=== PATIENT | male | born 1960 | race Caucasian/White ===

== ENCOUNTER 2016-10-25 16:06 | Emergency (ER) | payer OTHER ==
[~2016-10-25] VITALS: Ht 162.6 cm; Wt 76.2 kg
[~2016-10-25 16:06] MED LIST: ASPIR-LOW81 M1 PO; BEN50 PO; BENADRYL ALLERG25 M1 PO; DILTIAZEM HCL120 M2 PO; HYD25 PO; LOSARTAN POTASS50 M1 PO; MEDDP PO; PRE20 PO; SIMVASTATIN20 M1 PO
[2016-10-25 18:18] VITALS: BP 128/74
== END 2016-10-25 18:14 | disposition home or self-care (01) ==
LOC: ED 16:06
DX: L50.9 Urticaria, unspecified (principal); E03.9 Hypothyroidism, unspecified; E78.00 Pure hypercholesterolemia, unspecified
CPT/HCPCS: J1200; J2930

== ENCOUNTER 2016-10-26 03:28 | Emergency (ER) | payer OTHER ==
[2016-10-26 04:20] VITALS: BP 144/88
== END 2016-10-26 04:20 | disposition home or self-care (01) ==
LOC: ED 03:28
DX: L50.9 Urticaria, unspecified (principal); E78.00 Pure hypercholesterolemia, unspecified; I10 Essential (primary) hypertension; E07.9 Disorder of thyroid, unspecified; Z88.0 Allergy status to penicillin; Z91.018 Allergy to other foods
CPT/HCPCS: J0171; J7512; Q0163

== ENCOUNTER 2016-10-26 19:38 | Emergency (ER) | payer OTHER ==
[2016-10-26 22:39] VITALS: BP 114/65
== END 2016-10-26 22:39 | disposition home or self-care (01) ==
LOC: ED 19:38
DX: L50.9 Urticaria, unspecified (principal); I10 Essential (primary) hypertension; E78.00 Pure hypercholesterolemia, unspecified; Z91.010 Allergy to peanuts; Z91.018 Allergy to other foods; Z88.0 Allergy status to penicillin
CPT/HCPCS: J0171; J1200; J2930; J3490

== ENCOUNTER 2017-11-09 20:03 | Emergency (ER) | payer OTHER ==
[~2017-11-09] VITALS: Ht 157.5 cm; Wt 72.6 kg
[2017-11-09 20:12] VITALS: Ht 157.5 cm; Wt 72.6 kg
[2017-11-09] MEDS ORDERED: MONTELUKAST SOD10 M1 PO (21:22)
[2017-11-09] MEDS ORDERED: CETIRIZINE HYDR10 MG PO (21:22)
[2017-11-09] MEDS ORDERED: VERAMYST27.5 MCG/1 (21:23)
[2017-11-09] MEDS ORDERED: DILTIAZEM ER120 MG PO (21:23)
[2017-11-09] MEDS ORDERED: SIMVASTATIN20 M1 PO (21:24)
[2017-11-09 21:57] LABS: BASOPHIL % 0.3 % (0-2); PLATELET COUNT 176 x10^3mcL (130-400); RED CELL DISTRIBUTION WIDTH 12.6 % (11.5-14.5)
[2017-11-09 22:08] LABS: CALCIUM 8.5 mg/dL (8.5-10.1); CARBON DIOXIDE 25.7 mmol/L (21-32); CHLORIDE SERUM 104 mmol/L (98-107); CREATININE SERUM 0.8 mg/dL (0.7-1.3); GFR1 > 60 mL/min; GLUCOSE SERUM 112 mg/dL (74-106); POTASSIUM SERUM 3.8 mmol/L (3.5-5.1); SODIUM SERUM 140 mmol/L (136-145)
[2017-11-09 22:12] LABS: ALBUMIN 3.5 g/dL (3.4-5.0); ALKALINE PHOSPHATASE 92 U/L (46-116); ALT/SGPT 23 U/L (16-63); AST/SGOT 18 U/L (15-37); BILIRUBIN TOTAL 0.3 mg/dL (0.20-1.00)
[2017-11-09 22:42] LABS: microscopic required? NO
[2017-11-09 22:57] LABS: UA SPECIFIC GRAVITY 1.015 (1.005-1.035); urine erythrocyte NEGATIVE (NEGATIVE)
[2017-11-10 00:45] VITALS: BP 122/69
== END 2017-11-10 00:45 | disposition home or self-care (01) ==
LOC: ED 20:03
PROVIDERS: Emergency Medicine
DX: M79.1 Myalgia (principal); F41.0 Panic disorder [episodic paroxysmal anxiety]; Z00.00 Encounter for general adult medical examination without abnormal findings; E78.00 Pure hypercholesterolemia, unspecified; I10 Essential (primary) hypertension; Z88.0 Allergy status to penicillin; Z91.010 Allergy to peanuts; Z91.018 Allergy to other foods
CPT/HCPCS: 36415; 83880; J7030